=== PATIENT | male | born 1945 | race Caucasian/White ===

== ENCOUNTER 2019-10-14 13:16 | Emergency (ER) | payer OTHER, SELFPAY ==
[2019-10-14 13:32] VITALS: BP 138/73; PULSE 53; RESP 17; TEMP 37.7; O2SAT 100
[2019-10-14 13:41] LABS: Bilirubin Negative (Negative); Blood Trace-lysed (Negative); Clarity Clear (Clear); Glucose Negative (Negative); Ketones Negative (Negative); Leukocyte Esterase Negative (Negative); Nitrite Negative (Negative); Urobilinogen 0.2 EU/dL (Up TO 0.2)
[2019-10-14 13:53] LABS: Bacteria Negative HPF (Negative); C & S Indicated? No; Casts Negative LPF (Negative); Crystals Negative HPF (Negative); Epithelial Cells Rare HPF (Negative); Mucus Negative (Negative); RBC 0-2 HPF (0-2); WBC 0-2 HPF (0-5)
--- NOTE | 2019-10-14 13:59 | ED.GENADUL_ITS ---
Discharge Plan Disposition Patient Disposition: HOME Discharge Details Chief Complaint: Abd Prob Clinical Impression: Abdominal pain Primary Care Provider: None,None ED Provider: Goran Gallego Home Meds and New Rx's Prescriptions: Continued clopidogrel [Plavix] 75 mg Tablet See Rx Instructions .ROUTE .COMPLEX RF: 0 ezetimibe [Zetia] 10 mg Tablet 10 mg PO DAILY RF: 0 rosuvastatin [Crestor] 5 mg Tablet 5 mg PO DAILY RF: 0 atorvastatin 40 mg Tablet 40 mg PO DAILY RF: 0 pantoprazole 40 mg Tablet,Delayed Release (Dr/Ec) 40 mg PO BID RF: 0 Discharge Instructions Instructions: Abdominal Pain (ED) Additional Instructions: Please contact your primary care physician to arrange follow-up. Return to the ER for any worsening or new concerning symptoms. Medical Decision Making 1400 --74-year-old male with prior history of diverticulitis 2016, coronary artery disease, here with abdominal pain over the past 3 days, tender to palpation mid abdomen and left upper quadrant. Consider ulcerative disease versus diverticulitis versus other acute surgical intra-abdominal process. Plan to obtain CT imaging. I will give Pepcid IV and IV fluid. ECG was reviewed and interpreted by me: Sinus bradycardia 53 bpm, normal axis, short NV with NV of 112, nondiagnostic. 15:49 --labs reviewed and nondiagnostic. CT interpretation pending. Patient reassessed remained stable. --CT interpreted by radiology: No acute abnormality. Incidental findings noted. I reviewed results with the patient. Patient was encouraged to follow-up with primary care physician when he gets home next week. He understands he may need additional diagnostic testing should symptoms persist. I recommended he return immediately should have any worsening or new concerning symptoms. Patient donavan balized understanding of my instructions. HPI General Mode of arrival: ambulatory . Date/Time Provider Initiated Documentation: 10/14/19 13:28 . Limitations to Documentation: no limitations . Information obtained by: patient . HPI Narrative: 74-year-old male with history of prior diverticulitis and intestinal ulcer, here with chief complaint of abdominal pain that started 3 days ago and has persisted. Pain is mild to moderate, waxes and wanes, no modifiers. He tried bland diet which has not helped. He has mild intermittent associated nausea. No vomiting. No diarrhea. No bright red blood per rectum or melena. He had normal bowel movement earlier today. No associated fever. Related Data Home Medications Medication Instructions Recorded Confirmed atorvastatin 40 mg PO DAILY 10/14/19 10/14/19 clopidogrel [Plavix] See Rx Instructions .ROUTE .COMPLEX 10/14/19 10/14/19 ezetimibe [Zetia] 10 mg PO DAILY 10/14/19 10/14/19 pantoprazole 40 mg PO BID 10/14/19 10/14/19 rosuvastatin [Crestor] 5 mg PO DAILY 10/14/19 10/14/19 Allergies Allergy/AdvReac Type Severity Reaction Status Date / Time ciprofloxacin [From Cipro] Allergy Hives Unverified 10/14/19 13:42 Penicillins Allergy Hives Unverified 10/14/19 13:37 erythromycin base AdvReac Unverified 10/14/19 13:42 methylprednisolone AdvReac Unverified 10/14/19 13:40 [From Solu-Medrol] Sulfa (Sulfonamide AdvReac Unverified 10/14/19 13:39 Antibiotics) General Stated Complaint: Abd Prob KATHRINE: 3 Review of Systems All systems reviewed & are unremarkable except as noted in HPI and below Constitutional Constitutional: Denies fever(s) Gastrointestinal Gastrointestinal: Reports as per HPI and Reports abdominal pain PFSH Medical History Diverticulitis (Chronic) Social History Smoking/Tobacco Use Status: Former Tobacco Use Substance use type: does not use Do you feel safe at home: Yes Do you feel safe in your relationship?: Yes Exam Const General: cooperative and no acute distress HENMT Mouth: moist mucous membranes Eyes Conjunctivae: normal conjunctivae Sclera: normal sclerae Neck Neck: trachea midline and supple Resp Auscultation: clear to auscultation bilaterally, no rales, no rhonchi and no wheezes Cardio Jugular venous pressure: no JVD Rate: regular rate and not tachycardic Rhythm: regular rhythm GI Palpation: soft, not firm, no guarding, no masses, no pulsatile masses, not rigid and tender in the LUQ and periumbilically; with no rebound tenderness Auscultation: normal bowel sounds Skin General skin exam: no rashes or lesions noted Neuro General: alert, awake, oriented x3 and tone normal Extrem General: no edema Psych Appearance: grossly normal Mental Status: mental status grossly normal Course Vital Signs Vital signs: Vital Signs Temperature 37.7 C H 10/14/19 13:32 Pulse 53 L 10/14/19 13:32 Respiratory Rate 17 10/14/19 13:32 Blood Pressure 138/73 10/14/19 13:32 Pulse Oximetry 100 10/14/19 13:32 Temperature 37.7 C H 10/14/19 13:32 Temperature Source Temporal Artery Scan 10/14/19 13:32 Pulse 53 L 10/14/19 13:32 Respiratory Rate 17 10/14/19 13:32 Blood Pressure 138/73 10/14/19 13:32 Pulse Oximetry 100 10/14/19 13:32 Oxygen Delivery Method Room Air 10/14/19 13:32 Oxygen Flow Rate 0 10/14/19 13:32 Pain Level 2 10/14/19 13:32 Lab/Test Results Lab/Test Results: Laboratory Tests Range/Units 10/14/19 13:30 Urine Color (Yellow) Yellow Urine Clarity (Clear) Clear Urine pH (5-8) 6.0 Ur Specific [place] (1.005-1.025) 1.010 Urine Protein (Negative) mg/dL Negative Urine Ketones (Negative) mg/dL Negative Urine Blood (Negative) Trace-lysed H Urine Nitrite (Negative) Negative Urine Bilirubin (Negative) Negative Urine Urobilinogen (Up TO 0.2) EU/dL 0.2 Ur Leukocyte Esterase (Negative) Negative Urine RBC (0-2) HPF 0-2 Urine WBC (0-5) HPF 0-2 Ur Epithelial Cells (Negative) HPF Rare Urine Crystals (Negative) HPF Negative Urine Bacteria (Negative) HPF Negative Urine Casts (Negative) LPF Negative Urine Mucus (Negative) Negative Ur Culture Indicated? No Urine Glucose (Negative) mg/dL Negative
[2019-10-14] MEDS: FAMOTIDINE 20 MG/50 ML BAG 100 MG IVPB (14:18)
[2019-10-14] MEDS: Lactated Ringers 1,000 ML 125 ML IV (14:19)
[2019-10-14 14:21] LABS: Abs Immature Grans 0.03 k/cumm (0.0-0.09); Absolute Basophil Count 0.01 k/cumm (0.0-0.2); Absolute Eosinophil Count 0.08 k/cumm (0.0-0.7); Absolute Lymphocyte Count 0.83 k/cumm (1.2-3.4); Absolute Monocyte Count 0.63 k/cumm (0.11-0.7); Absolute Neutrophil Count 3.05 k/cumm (1.2-6.7); Basophils % 0.2; Eosinophils % 1.7; HCT 43.9 % (40.0-50.0); HGB 14.9 g/dL (13.5-17.5); Immature Grans % 0.6; Lymphocytes % 17.9; Mean Corp. HGB Concentration 33.9 g/dL (32.0-36.0); Mean Corpuscular Hemoglobin 31.2 pg (27.0-33.0); Mean Corpuscular Volume 91.8 fL (80-95); Mean Platelet Volume 9.9 fL (8.0-11.0); Monocytes % 13.6; Platelet Count 240 x1000/uL (130-400); RBC 4.78 m/cumm (4.50-6.00); White Blood Cell Count 4.63 k/cumm (4.4-10.8)
[2019-10-14 14:30] LABS: Lipase 152 U/L (73-393)
[2019-10-14 14:34] LABS: ALT 40 U/L (16-63); AST 29 U/L (15-37); Albumin 3.4 g/dL (3.4-5.0); Alkaline Phosphatase 55 U/L (46-116); Anion Gap 9.3 mmol/L (3-11); BUN 17 mg/dL (7-18); Bilirubin, Total 0.8 mg/dL (0.2-1.0); CO2 28.7 mmol/L (21.0-32.0); CREATININE 1.03 mg/dL (0.70-1.30); Calcium 8.9 mg/dL (8.5-10.1); Chloride 105 mmol/L (98-107); Glucose 91 mg/dL (74-106); Potassium 4.2 mmol/L (3.5-5.1); Sodium 143 mmol/L (136-145); Total Protein 6.7 g/dL (6.4-8.2)
[2019-10-14] MEDS: Omnipaque 350 MG/ML 100 ML BTL IJ (14:45)
--- NOTE | 2019-10-14 14:50 | DI.CT_ITS ---
EXAM: CT ABDOMEN PELVIS W CLINICAL HISTORY: luq and mid abdominal pain and tenderness TECHNIQUE: Imaging Protocol: Axial computed tomography images with coronal and sagittal reformatted images were created and reviewed CONTRAST MATERIAL: Intravenous: Omnipaque 350 Contrast volume:100 mL contrast route:IV - Oral: No COMPARISON: No exams were available for comparison FINDINGS: ABDOMEN: Lung Bases: There is a calcified granuloma in the right lower lobe. Dependent atelectatic changes ar e seen in the lung bases bilaterally. Liver: Normal density. There are a few tiny hypodense lesions seen in the liver which are too small f or further characterization. These likely reflect cysts. The portal, superior mesenteric and spleni c veins are patent. Gallbladder and biliary tract: No radiodense calculus or dilation. Pancreas: Normal density, no abnormal calcifications or inflammatory process. Spleen: Normal. Kidneys: Normal size, contour and axis. There is a 2 millimeter nonobstructing stone in the midpole o f the right kidney. There is a cyst in the lower pole of the left kidney. No suspicious solid renal mass. Adrenal glands: No masses seen. Abdominal Aorta: Sclerosis. No aneurysm. PELVIS: Bladder: Symmetric distention, no gross wall thickening. Bowel: Colonic diverticulosis but no evidence of acute diverticulitis. Findings suggestive of prior appendectomy. No evidence of bowel obstruction. Small hiatal hernia. Peritoneal cavity: No ascites, collection or mesenteric inflammatory response. Bones: Degenerative changes in the spine. Old compression deformity of the superior endplate of L4. Reproductive organs: Within normal limits. Lymph nodes: Unremarkable. Impression: No evidence of an acute abdominal or pelvic process. DATA REPOSITORY: All CT scans at this facility are submitted to the National Radiology Data Registry (NRDR) Dose Index Registry (DIR) with the [employer] ([employer]). RADIATION OPTIMIZATION: All CT scans at this facility use at least one of these dose optimization te chniques: automated exposure control; mA and/or kV adjustment per patient size (includes targeted exa ms where dose is matched to clinical indication); or iterative reconstruction.
--- NOTE | 2019-10-14 15:58 | DI.VRAD_ITS ---
PROCEDURE INFORMATION: Exam: CT Abdomen And Pelvis With Contrast Exam date and time: 10/14/2019 2:54 PM Age: 74 years old Clinical indication: Abdominal pain TECHNIQUE: Imaging protocol: Computed tomography of the abdomen and pelvis with intravenous contrast. COMPARISON: No relevant prior studies available. FINDINGS: Lungs: Calcified granuloma within the posterior right lower lobe. Bilateral dependent lower lobe opacities, likely atelectasis. Liver: Too small to adequately characterize low-density lesion within the posterior segment of the right hepatic lobe, likely cyst. No intrahepatic duct dilatation. Gallbladder and bile ducts: Unremarkable. No gallstones or bile duct dilatation. Pancreas: Unremarkable. No ductal dilation. Spleen: Unremarkable. No splenomegaly. Adrenals: Normal. No mass. Kidneys and ureters: Tiny cyst in the left kidney lower pole. No left renal stone or hydronephrosis. Normal right kidney and right ureter. Stomach and bowel: Colonic diverticulosis without diverticulitis. The stomach and small bowel are unremarkable. Appendix: Status post appendectomy. Intraperitoneal space: Unremarkable. No free air. No significant fluid collection. Vasculature: Mild atherosclerosis of the abdominal aorta and branch vessels. No aneurysm. Lymph nodes: Unremarkable. No enlarged lymph nodes. Bladder: Unremarkable as visualized. Reproductive: Unremarkable as visualized. Bones/joints: Degenerative spondylosis of the lumbar spine. Old mild compression forming at the superior endplate of L4. Soft tissues: Unremarkable. IMPRESSION: No acute abnormality. Dictated and Authenticated by: Tima Ramirez MD. Ordering:LAURA Zimmer MD
[2019-10-14 16:24] VITALS: BP 124/67; PULSE 54; RESP 16; TEMP 37; O2SAT 96
== END 2019-10-14 16:32 | disposition home or self-care (01) ==
PROVIDERS: Emergency Provider Student in an Organized Health Care Education/Training Program
DX: R10.12 Left upper quadrant pain (principal); I25.10 Atherosclerotic heart disease of native coronary artery without angina pectoris
CPT/HCPCS: 80053; 83690; 93005; 96365; 99285; 74177; 81003; 81015; 85025; 93010; 99284; J3490